=== PATIENT | male | born 1985 | race Caucasian/White ===

== ENCOUNTER 2016-12-22 17:48 | Emergency (ER) | payer OTHER ==
[~2016-12-22] VITALS: Ht 170.2 cm; Wt 68.0 kg
[2016-12-22 17:53] VITALS: BP 162/95
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
[2016-12-22] MEDS ORDERED: Acetaminophen 500mg (ES) tab ORAL ONE (18:15)
[2016-12-22] MEDS ORDERED: Ketorolac 60mg Inj IM ONE (18:15)
[2016-12-22 19:30] VITALS: BP 141/87
[2016-12-22] MEDS ORDERED: Bacitracin Oint UD TOPIC ONE ×2 (20:21→20:30)
[2016-12-22] MEDS ORDERED: IBUPROFEN600 MG ORAL (20:29)
[2016-12-22] MEDS ORDERED: NORCO 5-325 TA1 EAC1 ORAL (20:29)
[2016-12-22 20:45] VITALS: BP 131/82
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
== END 2016-12-22 20:45 | disposition home or self-care (01) ==
LOC: EDBD 17:48 → EMR 19:44
DX: S92.311A Displaced fracture of first metatarsal bone, right foot, initial encounter for closed fracture (principal); S80.812A Abrasion, left lower leg, initial encounter; V03.99XA Pedestrian with other conveyance injured in collision with car, pick-up truck or van, unspecified whether traffic or nontraffic accident, initial encounter; Y92.410 Unspecified street and highway as the place of occurrence of the external cause
CPT/HCPCS: 29515; 29540; 96372; 99284